=== PATIENT | female | born 1995 | race Caucasian/White ===

== ENCOUNTER 2018-04-24 23:37 | Outpatient (CLI) | payer MEDICAID ==
[2018-04-25 00:16] LABS: APPEARANCE,URINE CLEAR; BILIRUBIN,URINE NEGATIVE (NEGATIVE); COLOR,URINE STRAW; GLUCOSE, URINE NEGATIVE (NEGATIVE); KETONES,URINE NEGATIVE (NEGATIVE); LEUKOCYTE ESTERASE,URINE NEGATIVE (NEGATIVE); NITRITE,URINE NEGATIVE (NEGATIVE); PROTEIN,URINE NEGATIVE (NEGATIVE); URINE SPECIFIC GRAVITY 1.008; UROBILINOGEN,URINE NEGATIVE mg/dL (<2.0)
[2018-04-25 00:28] LABS: URINE AMPHETAMINES SCREEN NEGATIVE; URINE BARBITURATES SCREEN NEGATIVE; URINE BENZODIAZEPINES SCREEN NEGATIVE; URINE COCAINE SCREEN NEGATIVE; URINE MARIJUANA (THC) SCREEN NEGATIVE; URINE METHADONE SCREEN NEGATIVE; URINE PHENCYCLIDINE SCREEN NEGATIVE
--- NOTE | 2018-04-25 00:53 | Non Stress Test Report ---
Non Stress Test Datetime Report Generated by CPN: 04/25/2018 00:52 DEMOGRAPHIC Test Number: 1 EGA NST: 35.0 INDICATION Indication for Study: Ordered by Provider URINE RESULTS Urine Protein, NST: Negative Urine Ketones - NST: Negative Urine Glucose - NST: Negative Urine Blood - NST: Negative MONITORING Monitor Explained: Monitor Explained; Test Explained; Patient Verbalized Understanding Time on Monitor: 04/24/2018 23:58 Time off Monitor: 04/25/2018 04:06 NST Duration: 248 NST INTERVENTIONS NST Interventions: PO Hydration; Reposition Patient Physician Notified NST: Dr. Hopper BABY A: [id number] BABY A Movement : Present Contraction Frequency : x1 FHR Baseline : 135 Accelerations : 15X15 Decelerations : None Variability : Moderate 6-25bpm NST Review: Meets Criteria for Reactive NST NST Review and Verified By : BETTE Cleary NST Results: Reactive NST REPORT Report Trigger: Send Report
== END 2018-04-25 00:57 | disposition home or self-care (01) ==
LOC: LC 23:37
PROVIDERS: ATTEND Obstetrics & Gynecology
PROC: 4A1HXCZ Monitoring of Products of Conception, Cardiac Rate, External Approach (ICD-10-PCS; principal; 2018-04-24)
DX: O47.03 False labor before 37 completed weeks of gestation, third trimester (principal); Z3A.35 35 weeks gestation of pregnancy
CPT/HCPCS: 59025; 80307; 81001

== ENCOUNTER 2018-05-04 14:38 | Inpatient (IN) | payer MEDICAID ==
[2018-05-04 15:07] LABS: APPEARANCE,URINE SLIGHTLY-CLOUDY; BILIRUBIN,URINE NEGATIVE (NEGATIVE); COLOR,URINE YELLOW; GLUCOSE, URINE NEGATIVE (NEGATIVE); KETONES,URINE NEGATIVE (NEGATIVE); LEUKOCYTE ESTERASE,URINE SMALL (NEGATIVE); NITRITE,URINE NEGATIVE (NEGATIVE); PROTEIN,URINE NEGATIVE (NEGATIVE); URINE SPECIFIC GRAVITY 1.008; UROBILINOGEN,URINE NEGATIVE mg/dL (<2.0)
[2018-05-04 15:24] LABS: URINE AMPHETAMINES SCREEN NEGATIVE; URINE BENZODIAZEPINES SCREEN NEGATIVE; URINE COCAINE SCREEN NEGATIVE; URINE MARIJUANA (THC) SCREEN NEGATIVE; URINE METHADONE SCREEN NEGATIVE; URINE PHENCYCLIDINE SCREEN NEGATIVE
[2018-05-04 15:29] LABS: URINE BARBITURATES SCREEN UNCONFIRMED POSITIVE
[2018-05-04 15:33] LABS: UR PRO/CREAT RATIO RESULT 0.5 mg/mg (0.0-0.2); URINE CREATININE 44.4 mg/dL (16-327)
[2018-05-04 15:47] LABS: ABSOLUTE LYMPHOCYTES (AUTO) 1.2 10^3/uL (0.5-4.7); ABSOLUTE MONOCYTES (AUTO) 0.5 10^3/uL (0.1-1.4); ABSOLUTE NEUT (AUTO) 7.5 10^3/uL (1.7-8.2); BASOPHILS % (AUTO) 0.5 % (0-2); EOSINOPHILS % (AUTO) 0.3 % (0-6); HEMATOCRIT 34.1 % (36.0-47.0); HEMOGLOBIN 11.7 g/dL (12.0-15.5); LYMPHOCYTES % (AUTO) 13.2 % (13-45); MEAN CORPUSCULAR HEMOGLOBIN 28.9 pg (27.0-33.4); MEAN CORPUSCULAR HGB CONC 34.2 g/dL (32.0-36.0); MEAN CORPUSCULAR VOLUME 84 fl (80-97); MONOCYTES % (AUTO) 5.3 % (3-13); PLATELET COUNT 104 10^3/uL (150-450); RED BLOOD COUNT 4.03 10^6/uL (3.72-5.28); SEGMENTED NEUTROPHILS % (AUTO) 80.7 % (42-78); TOTAL CELLS COUNTED % (AUTO) 100 %; WHITE BLOOD COUNT 9.2 10^3/uL (4.0-10.5)
[2018-05-04 16:08] LABS: ALANINE AMINOTRANSFERASE 23 U/L (9-52); ALKALINE PHOSPHATASE 190 U/L (38-126); ANION GAP 13 (5-19); ASPARTATE AMINO TRANSFERASE 30 U/L (14-36); BILIRUBIN,DIRECT 0.1 mg/dL (0.0-0.4); BILIRUBIN,TOTAL 0.2 mg/dL (0.2-1.3); BLOOD UREA NITROGEN 10 mg/dL (7-20); CARBON DIOXIDE 20 mmol/L (22-30); CHLORIDE 105 mmol/L (98-107); GLUCOSE 133 mg/dL (75-110); POTASSIUM 4.1 mmol/L (3.6-5.0); TOTAL PROTEIN 5.7 g/dL (6.3-8.2); URIC ACID 6.2 mg/dL (2.5-6.2)
--- NOTE | 2018-05-04 17:12 | Admission Physical ---
Datetime Report Generated by CPN: 05/04/2018 17:12 CURRENT ADMISSION Chief Complaint: Signs/Symptoms Gestational HTN Indication for Induction: Not Applicable Admit Impression : , Intrauterine ; Observation/Evaluation Admit Impression- Other: 36wk 3day iup-abnormal labs Admit Plan: Observation/Evaluation ALLERGIES Medication Allergies: Yes Medication Allergies: Penicillins (05/04/2018); mushroom (05/04/2018) Food Allergies: Mushrooms OBSTETRICAL HISTORY EDC: 05/29/2018 00:00 : 1 Para: 0 Term: 0 : 0 SAB: 0 IAB: 0 Ectopic: 0 Livin Cesareans: 0 VBACs: 0 Multiple Births: 0 Gestational Diabetes: No Rh Sensitization: No Incompetent Cervix: No LUCY: No Infertility: No ART Treatment: No Uterine Anomaly: No IUGR: No Hx Previous C/S: No Macrosomia: No Hx Loss/Stillborn: No PIH: No Hx : No Placenta Previa/Abruption: No Depression/PP Depression: No PTL/PROM: No Post Hemorrhage: No Current Procedures: Ultrasound Obstetrical History Comments: G1-current SEE RECORDS Alcohol: No Marijuana : No Cocaine: No Other Illicit Drugs: No Cigarettes: Never Smoker. [id number] MEDICAL HISTORY Diabetes: No Blood Transfusion: No Pulmonary Disease (Asthma, TB): No Breast Disease: No Hypertension: No Chief Of Staff Doctor Surgery: No Heart Disease: No Hosp/Surgery: Yes Autoimmune Disorder: No Anesthetic Complications: No Kidney Disease: Yes Abnormal Pap Smear: No Neuro/Epilepsy: No Psychiatric Disorders: No Other Medical Diseases: No Hepatitis/Liver Disease: No Significant Family History: No Varicosities/Phlebitis: No Trauma/Violence : No Thyroid Dysfunction: No Medical History Comments: Migraines, wisdom teeth removal INFECTIOUS HISTORY Gonorrhea: No Genital Herpes: No Chlamydia: No Tuberculosis: No Syphilis: No Hepatitis: No HIV/AIDS Exposure: No Rash or Viral Illness: No HPV: No PHYSICAL EXAM General: Normal HEENT: Normal Neurologic: Normal Thyroid: Deferred Heart: Normal Lungs: Normal Breast: Deferred Back: Normal Abdomen: Normal Genitourinary Exam: Deferred Extremities: Normal DTRs: Normal Pelvic Type: Not Done Vital Signs: Reviewed; Within Normal Limits Details Vital Signs: Elevated b/p at [facility] FETUS A EGA: 36.3 Monitoring: External US FHR- Baseline: 150 Variability: Moderate 6-25bpm Accelerations: 15X15 FHR Category: Category I Presentation: Vertex Admit Comment: G1 Sent for PE workup from [facility] after b/p 143/91 Urine-protein creatinine ratio 0.5 Platelets 104,000; were 180,000 early Uric acid 6.2, LDH 198 History migraines B/ps normal on L_D. Plan to admit for 24 hr observation, repeat labs in am, collect 24 hr urine for protein. PLANS FOR LABOR AND DELIVERY Pain Management: Natural Feeding Preference: Formula Benefit of Breast Feed Discussed: Yes Circumcision: N/A INFORMED CONSENT Assignment: Jaleel Claros MD Signature: with User ID: Shirley : with User ID: Shirley : I personally evaluated and examined the patient in conjunction with the MLP and agree with the assessment, treatment plan and disposition.
--- NOTE | 2018-05-04 17:35 | Non Stress Test Report ---
Non Stress Test Datetime Report Generated by CPN: 05/04/2018 17:35 DEMOGRAPHIC EGA NST: 36.3 INDICATION Indication for Study: Ordered by Provider MONITORING Monitor Explained: Monitor Explained; Test Explained; Patient Verbalized Understanding Time on Monitor: 05/04/2018 14:51 Time off Monitor: 05/04/2018 17:34 NST Duration: 163 NST INTERVENTIONS NST Interventions: PO Hydration Physician Notified NST: P.Brothers, CNM BABY A: [id number] BABY A Movement : Present Contraction Frequency : irregular FHR Baseline : 135 Accelerations : 15X15 Decelerations : None Variability : Moderate 6-25bpm NST Review: Meets Criteria for Reactive NST NST Review and Verified By : Deana Morley RNC NST Results: Reactive NST REPORT Report Trigger: Send Report
[2018-05-05 06:28] LABS: ABSOLUTE BASOPHILS # (AUTO) 0.1 10^3/uL (0.0-0.2); ABSOLUTE EOSINOPHILS # (AUTO) 0.1 10^3/uL (0.0-0.6); ABSOLUTE LYMPHOCYTES (AUTO) 1.9 10^3/uL (0.5-4.7); ABSOLUTE MONOCYTES (AUTO) 0.5 10^3/uL (0.1-1.4); ABSOLUTE NEUT (AUTO) 5.6 10^3/uL (1.7-8.2); BASOPHILS % (AUTO) 0.7 % (0-2); EOSINOPHILS % (AUTO) 0.7 % (0-6); HEMATOCRIT 34.1 % (36.0-47.0); HEMOGLOBIN 12.1 g/dL (12.0-15.5); MEAN CORPUSCULAR HEMOGLOBIN 29.8 pg (27.0-33.4); MEAN CORPUSCULAR HGB CONC 35.5 g/dL (32.0-36.0); MEAN CORPUSCULAR VOLUME 84 fl (80-97); MONOCYTES % (AUTO) 6.5 % (3-13); RED BLOOD COUNT 4.07 10^6/uL (3.72-5.28); RED CELL DISTRIBUTION WIDTH 14.1 % (11.5-14.0); SEGMENTED NEUTROPHILS % (AUTO) 69.1 % (42-78); TOTAL CELLS COUNTED % (AUTO) 100 %; WHITE BLOOD COUNT 8.1 10^3/uL (4.0-10.5)
[2018-05-05 06:56] LABS: PLATELET COUNT 99 10^3/uL (150-450)
[2018-05-05 07:16] LABS: ALANINE AMINOTRANSFERASE 22 U/L (9-52); ALBUMIN 2.9 g/dL (3.5-5.0); ALKALINE PHOSPHATASE 189 U/L (38-126); ANION GAP 11 (5-19); ASPARTATE AMINO TRANSFERASE 30 U/L (14-36); BILIRUBIN,TOTAL 0.2 mg/dL (0.2-1.3); BLOOD UREA NITROGEN 11 mg/dL (7-20); CALCIUM 8.8 mg/dL (8.4-10.2); CARBON DIOXIDE 22 mmol/L (22-30); CHLORIDE 106 mmol/L (98-107); GLUCOSE 67 mg/dL (75-110); POTASSIUM 4.2 mmol/L (3.6-5.0); SODIUM 138.7 mmol/L (137-145); TOTAL PROTEIN 5.5 g/dL (6.3-8.2); URIC ACID 6.7 mg/dL (2.5-6.2)
[2018-05-05 17:00] LABS: ABSOLUTE EOSINOPHILS # (AUTO) 0.1 10^3/uL (0.0-0.6); ABSOLUTE LYMPHOCYTES (AUTO) 1.8 10^3/uL (0.5-4.7); ABSOLUTE MONOCYTES (AUTO) 0.6 10^3/uL (0.1-1.4); ABSOLUTE NEUT (AUTO) 5.5 10^3/uL (1.7-8.2); BASOPHILS % (AUTO) 0.6 % (0-2); EOSINOPHILS % (AUTO) 0.6 % (0-6); HEMATOCRIT 34.8 % (36.0-47.0); MEAN CORPUSCULAR HEMOGLOBIN 28.9 pg (27.0-33.4); MEAN CORPUSCULAR HGB CONC 34.4 g/dL (32.0-36.0); MEAN CORPUSCULAR VOLUME 84 fl (80-97); MONOCYTES % (AUTO) 7.9 % (3-13); PLATELET COUNT 115 10^3/uL (150-450); RED BLOOD COUNT 4.14 10^6/uL (3.72-5.28); RED CELL DISTRIBUTION WIDTH 13.9 % (11.5-14.0); SEGMENTED NEUTROPHILS % (AUTO) 68.9 % (42-78); TOTAL CELLS COUNTED % (AUTO) 100 %
[2018-05-05 17:28] LABS: ALANINE AMINOTRANSFERASE 15 U/L (9-52); ALKALINE PHOSPHATASE 191 U/L (38-126); ANION GAP 11 (5-19); ASPARTATE AMINO TRANSFERASE 28 U/L (14-36); BILIRUBIN,DIRECT 0.2 mg/dL (0.0-0.4); BILIRUBIN,TOTAL 0.2 mg/dL (0.2-1.3); BLOOD UREA NITROGEN 11 mg/dL (7-20); CALCIUM 8.5 mg/dL (8.4-10.2); CARBON DIOXIDE 22 mmol/L (22-30); CHLORIDE 105 mmol/L (98-107); GLUCOSE 121 mg/dL (75-110); POTASSIUM 4.1 mmol/L (3.6-5.0); TOTAL PROTEIN 5.6 g/dL (6.3-8.2); URIC ACID 6.4 mg/dL (2.5-6.2)
[2018-05-05 17:51] LABS: 24 HOUR URINE PROTEIN RESULT 295 mg/day (42-225); 24 HR URINE CREAT RESULT 0.3 mg/day (0.8-2.0); URINE CREATININE 22.7 mg/dL (16-327); URINE PROTEIN 22.7 mg/dL (<12)
--- NOTE | 2018-05-06 00:06 | PDOC PROGRESS REPORT ---
Subjective Progress Note for:: 05/05/18 Subjective:: late entry note for 05/05/2018 at 2100 - denies [facility]/blurry vision/RUQ pain. reports BPs always elevated in the office. Reason For Visit: THROMBOCYTOPENIA, 36 WKS, PRE E Physical Exam - Physical Exam Vital Signs: Temp Pulse Resp BP Pulse Ox 97.7 F 97 18 121/78 100 05/05/18 20:05 05/05/18 20:05 05/05/18 20:05 05/05/18 20:05 05/05/18 20:05 Intake & Output 05/04/18 05/05/18 05/06/18 06:59 06:59 06:59 Intake Total 200 Output Total 1000 Balance -800 Weight 69.2 kg General appearance: PRESENT: no acute distress, well-developed, well-nourished Head exam: PRESENT: atraumatic, normocephalic Respiratory exam: PRESENT: clear to auscultation jordan, symmetrical, unlabored Cardiovascular exam: PRESENT: RRR. ABSENT: diastolic murmur, rubs, systolic murmur Vascular exam: PRESENT: normal capillary refill GI/Abdominal exam: PRESENT: normal bowel sounds, soft, other - gravid uterus. ABSENT: distended, guarding, mass, organolmegaly, rebound, tenderness Rectal exam: PRESENT: deferred Extremities exam: PRESENT: full ROM. ABSENT: calf tenderness, clubbing, pedal edema Musculoskeletal exam: PRESENT: ambulatory Neurological exam: PRESENT: alert, awake, oriented to person, oriented to place , oriented to time, oriented to situation, CN II-XII grossly intact. ABSENT: motor sensory deficit Psychiatric exam: PRESENT: appropriate affect, normal mood. ABSENT: homicidal ideation, suicidal ideation Skin exam: PRESENT: dry, intact, warm. ABSENT: cyanosis, rash Result Laboratory Results: 05/05/18 16:50 05/05/18 16:45 05/05/18 05/05/18 05/05/18 06:14 06:14 16:38 WBC 8.1 RBC 4.07 Hgb 12.1 Hct 34.1 L MCV 84 MCH 29.8 MCHC 35.5 RDW 14.1 H Plt Count 99 L Seg Neutrophils % 69.1 Lymphocytes % 23.0 Monocytes % 6.5 Eosinophils % 0.7 Basophils % 0.7 Absolute Neutrophils 5.6 Absolute Lymphocytes 1.9 Absolute Monocytes 0.5 Absolute Eosinophils 0.1 Absolute Basophils 0.1 Sodium 138.7 Potassium 4.2 Chloride 106 Carbon Dioxide 22 Anion Gap 11 BUN 11 Creatinine 0.79 Est GFR ( Amer) > 60 Est GFR (Non-Af Amer) > 60 Glucose 67 L Uric Acid 6.7 H Calcium 8.8 Total Bilirubin 0.2 AST 30 ALT 22 Alkaline Phosphatase 189 H Total Protein 5.5 L Albumin 2.9 L Ur 24 Hour Volume 1300 Ur Total Protein 24 Hr 295 H 05/05/18 05/05/18 16:45 16:50 WBC 8.0 RBC 4.14 Hgb 12.0 Hct 34.8 L MCV 84 MCH 28.9 MCHC 34.4 RDW 13.9 Plt Count 115 L Seg Neutrophils % 68.9 Lymphocytes % 22.0 Monocytes % 7.9 Eosinophils % 0.6 Basophils % 0.6 Absolute Neutrophils 5.5 Absolute Lymphocytes 1.8 Absolute Monocytes 0.6 Absolute Eosinophils 0.1 Absolute Basophils 0.0 Sodium 138.0 Potassium 4.1 Chloride 105 Carbon Dioxide 22 Anion Gap 11 BUN 11 Creatinine 0.73 Est GFR ( Amer) > 60 Est GFR (Non-Af Amer) > 60 Glucose 121 H Uric Acid 6.4 H Calcium 8.5 Total Bilirubin 0.2 AST 28 ALT 15 Alkaline Phosphatase 191 H Total Protein 5.6 L Albumin 3.0 L Ur 24 Hour Volume Ur Total Protein 24 Hr Assessment & Plan - Diagnosis (1) Hypertension affecting Qualifiers: Trimester: third trimester Qualified Code(s): O16.3 - Unspecified maternal hypertension, third trimester Is this a current diagnosis for this admission?: Yes Plan: BPs normal right now but elevated in office. 24 hr UTP 295mg. Pt is now 36+ 5ega and reviewed with patient that with lab trend and that concern for developing PreE (threshold is 300mg). Concern that Uric acid is elevated and Platlets low but essentially stable. Recommend repeat labs in am and then again on Tuesday. Plan unless need to deliver sooner that IOL on Tuesday for delivery on tuesday when 37wks. Plan for IV steroids on Tuesday to help with platlets in order to attempt to allow patient to have epidural. If labs improve may be able to delay delivery past 37wks. (2) Thrombocytopenia affecting Is this a current diagnosis for this admission?: Yes Plan: see above - Time Time Spent with patient: 25-34 minutes Smoking Cessation Education: 3 to 10 minutes Medications reviewed and adjusted accordingly: Yes Anticipated discharge: Home Within: within 48 hours - Inpatient Certification Based on my medical assessment, after consideration of the patient's comorbidities, presenting symptoms, or acuity I expect that the services needed warrant INPATIENT care.: Yes I certify that my determination is in accordance with my understanding of Medicare's requirements for reasonable and necessary INPATIENT services [42 CFR 412.3e].: Yes Medical Necessity: Need Close Monitoring Due to Risk of Patient Decompensation
[2018-05-06 09:39] LABS: ABSOLUTE BASOPHILS # (AUTO) 0.1 10^3/uL (0.0-0.2); ABSOLUTE EOSINOPHILS # (AUTO) 0.1 10^3/uL (0.0-0.6); ABSOLUTE MONOCYTES (AUTO) 0.6 10^3/uL (0.1-1.4); ABSOLUTE NEUT (AUTO) 6.4 10^3/uL (1.7-8.2); BASOPHILS % (AUTO) 0.6 % (0-2); EOSINOPHILS % (AUTO) 0.7 % (0-6); HEMATOCRIT 36.2 % (36.0-47.0); HEMOGLOBIN 12.3 g/dL (12.0-15.5); MEAN CORPUSCULAR HEMOGLOBIN 28.7 pg (27.0-33.4); MEAN CORPUSCULAR HGB CONC 33.8 g/dL (32.0-36.0); MEAN CORPUSCULAR VOLUME 85 fl (80-97); PLATELET COUNT 114 10^3/uL (150-450); RED BLOOD COUNT 4.27 10^6/uL (3.72-5.28); RED CELL DISTRIBUTION WIDTH 14.1 % (11.5-14.0); SEGMENTED NEUTROPHILS % (AUTO) 69.7 % (42-78); TOTAL CELLS COUNTED % (AUTO) 100 %; WHITE BLOOD COUNT 9.2 10^3/uL (4.0-10.5)
[2018-05-06 09:57] LABS: ALANINE AMINOTRANSFERASE 17 U/L (9-52); ALKALINE PHOSPHATASE 198 U/L (38-126); ANION GAP 12 (5-19); ASPARTATE AMINO TRANSFERASE 30 U/L (14-36); BILIRUBIN,DIRECT 0.2 mg/dL (0.0-0.4); BILIRUBIN,TOTAL 0.2 mg/dL (0.2-1.3); BLOOD UREA NITROGEN 13 mg/dL (7-20); CALCIUM 8.4 mg/dL (8.4-10.2); CARBON DIOXIDE 24 mmol/L (22-30); CHLORIDE 104 mmol/L (98-107); GLUCOSE 77 mg/dL (75-110); POTASSIUM 4.2 mmol/L (3.6-5.0); SODIUM 139.7 mmol/L (137-145); TOTAL PROTEIN 5.7 g/dL (6.3-8.2); URIC ACID 6.7 mg/dL (2.5-6.2)
--- NOTE | 2018-05-06 14:20 | PDOC PROGRESS REPORT ---
Subjective Progress Note for:: 05/06/18 Subjective:: No complaints. Feels baby move. Reason For Visit: THROMBOCYTOPENIA, 36 WKS, PRE E Physical Exam - Physical Exam Vital Signs: Temp Pulse Resp BP Pulse Ox 98 F 76 18 117/65 98 05/06/18 12:29 05/06/18 12:29 05/06/18 12:29 05/06/18 12:29 05/06/18 12:29 Intake & Output 05/05/18 05/06/18 05/07/18 06:59 06:59 06:59 Intake Total 200 Output Total 1000 Balance -800 Weight 69.2 kg GI/Abdominal exam: PRESENT: soft - Gravid, nontender Extremities exam: PRESENT: full ROM - Nontender, pulses equal, no evidence Result Laboratory Results: 05/06/18 09:30 05/06/18 09:30 05/05/18 05/05/18 05/05/18 16:38 16:45 16:50 WBC 8.0 RBC 4.14 Hgb 12.0 Hct 34.8 L MCV 84 MCH 28.9 MCHC 34.4 RDW 13.9 Plt Count 115 L Seg Neutrophils % 68.9 Lymphocytes % 22.0 Monocytes % 7.9 Eosinophils % 0.6 Basophils % 0.6 Absolute Neutrophils 5.5 Absolute Lymphocytes 1.8 Absolute Monocytes 0.6 Absolute Eosinophils 0.1 Absolute Basophils 0.0 Sodium 138.0 Potassium 4.1 Chloride 105 Carbon Dioxide 22 Anion Gap 11 BUN 11 Creatinine 0.73 Est GFR ( Amer) > 60 Est GFR (Non-Af Amer) > 60 Glucose 121 H Uric Acid 6.4 H Calcium 8.5 Total Bilirubin 0.2 AST 28 ALT 15 Alkaline Phosphatase 191 H Total Protein 5.6 L Albumin 3.0 L Ur 24 Hour Volume 1300 Ur Total Protein 24 Hr 295 H 05/06/18 05/06/18 09:30 09:30 WBC 9.2 RBC 4.27 Hgb 12.3 Hct 36.2 MCV 85 MCH 28.7 MCHC 33.8 RDW 14.1 H Plt Count 114 L Seg Neutrophils % 69.7 Lymphocytes % 22.0 Monocytes % 7.0 Eosinophils % 0.7 Basophils % 0.6 Absolute Neutrophils 6.4 Absolute Lymphocytes 2.0 Absolute Monocytes 0.6 Absolute Eosinophils 0.1 Absolute Basophils 0.1 Sodium 139.7 Potassium 4.2 Chloride 104 Carbon Dioxide 24 Anion Gap 12 BUN 13 Creatinine 0.82 Est GFR ( Amer) > 60 Est GFR (Non-Af Amer) > 60 Glucose 77 Uric Acid 6.7 H Calcium 8.4 Total Bilirubin 0.2 AST 30 ALT 17 Alkaline Phosphatase 198 H Total Protein 5.7 L Albumin 3.0 L Ur 24 Hour Volume Ur Total Protein 24 Hr Assessment & Plan - Diagnosis (1) Hypertension affecting Qualifiers: Trimester: third trimester Qualified Code(s): O16.3 - Unspecified maternal hypertension, third trimester Is this a current diagnosis for this admission?: Yes (2) Thrombocytopenia affecting Is this a current diagnosis for this admission?: Yes - Plan Summary Plan Summary: Hypertension - Will will continue to monitor Thrombocytopenia - Platelets above 100,000, will hold steroids at this time Cervical ripening tomorrow pm with induction
[2018-05-07] MEDS ORDERED: ACETAMINOPHEN 325 MG TABLET ONE (07:34)
[2018-05-07] MEDS ORDERED: BUTALB/ACETAMINOPHEN/CAFFEINE 1 TAB EACH PO ONE (10:00)
[2018-05-07] MEDS ORDERED: RINGERS SOLUTION,LACTATED 1,000 ML IV ONE (13:11)
[2018-05-07] MEDS ORDERED: RINGERS SOLUTION,LACTATED 1,000 ML IV PRN (13:11)
--- NOTE | 2018-05-07 13:11 | PDOC PROGRESS REPORT ---
Subjective Progress Note for:: 05/07/18 Subjective:: denies blurry vision/RUQ pain. reports BPs always elevated in the office. Now with HOOK not relieved with tylenol, fioricet given. Reason For Visit: THROMBOCYTOPENIA, 36 WKS, PRE E Physical Exam - Physical Exam Vital Signs: Temp Pulse Resp BP Pulse Ox 97.9 F 91 18 113/82 98 05/07/18 12:04 05/07/18 12:04 05/07/18 12:04 05/07/18 12:04 05/07/18 12:04 Intake & Output 05/06/18 05/07/18 05/08/18 06:59 06:59 06:59 Intake Total 600 Balance 600 General appearance: PRESENT: no acute distress, well-developed, well-nourished Head exam: PRESENT: atraumatic, normocephalic Respiratory exam: PRESENT: clear to auscultation jordan, symmetrical, unlabored Cardiovascular exam: PRESENT: RRR. ABSENT: diastolic murmur, rubs, systolic murmur Pulses: PRESENT: normal dorsalis pedis pul, +2 pedal pulses bilateral Vascular exam: PRESENT: normal capillary refill GI/Abdominal exam: PRESENT: normal bowel sounds, soft, other - gravid. ABSENT: distended, guarding, mass, organolmegaly, rebound, tenderness Rectal exam: PRESENT: deferred Extremities exam: PRESENT: full ROM. ABSENT: calf tenderness, clubbing, pedal edema Neurological exam: PRESENT: alert, awake, oriented to person, oriented to place , oriented to time, oriented to situation, CN II-XII grossly intact. ABSENT: motor sensory deficit Psychiatric exam: PRESENT: appropriate affect, normal mood. ABSENT: homicidal ideation, suicidal ideation Skin exam: PRESENT: dry, intact, warm. ABSENT: cyanosis, rash - Obstetrical Exam External Genitalia: normal Dilation (cm): 1 Effacement (%): 50 Station: -3 Tender: No Result Laboratory Results: 05/06/18 09:30 05/06/18 09:30 Assessment & Plan - Diagnosis (1) Hypertension affecting Qualifiers: Trimester: third trimester Qualified Code(s): O16.3 - Unspecified maternal hypertension, third trimester Is this a current diagnosis for this admission?: Yes Plan: BPs normal right now but elevated in office 140/90s in office 24 hr UTP 295mgon 05/05. Pt is now 36+6ega and reviewed with patient that with lab trend and that concern for developing PreE (threshold is 300mg). Concern that Uric acid is elevated and Platlets low but essentially stable will give Steroids IV to help improve chances of obtaining epidural during labor. Recommend repeat labs today and at least q 8 while in labor. Now symptomatic and HOOK unrelieved with rest and tylenol. Will bring patient over to labor and delivery and begin IOL with cervidil then cooks catheter and pitocin. If labs improve may be able to delay delivery past 37wks. (2) Thrombocytopenia affecting Is this a current diagnosis for this admission?: Yes Plan: see above (3) Headache Qualifiers: Headache chronicity pattern: acute headache Is this a current diagnosis for this admission?: Yes Plan: not relieved with medication. - Time Time Spent with patient: 15-24 minutes Medications reviewed and adjusted accordingly: Yes Within: within 36 hours - Inpatient Certification Based on my medical assessment, after consideration of the patient's comorbidities, presenting symptoms, or acuity I expect that the services needed warrant INPATIENT care.: Yes I certify that my determination is in accordance with my understanding of Medicare's requirements for reasonable and necessary INPATIENT services [42 CFR 412.3e].: Yes Medical Necessity: Need Close Monitoring Due to Risk of Patient Decompensation, Other - need for delivery Post Hospital Care: D/C Director Smb Sales Documentation
[2018-05-07] MEDS ORDERED: VANCOMYCIN HCL 1,000 MG in DEXTROSE 5%-WATER 250 ML IV SCH (14:00)
[2018-05-07] MEDS ORDERED: SUCCINYLCHOLINE CHLORIDE INJ 200 MG/10 ML VIAL ONE (14:14)
[2018-05-07 14:29] LABS: ABSOLUTE BASOPHILS # (AUTO) 0.1 10^3/uL (0.0-0.2); ABSOLUTE EOSINOPHILS # (AUTO) 0.1 10^3/uL (0.0-0.6); ABSOLUTE LYMPHOCYTES (AUTO) 1.9 10^3/uL (0.5-4.7); ABSOLUTE MONOCYTES (AUTO) 0.6 10^3/uL (0.1-1.4); ABSOLUTE NEUT (AUTO) 6.6 10^3/uL (1.7-8.2); BASOPHILS % (AUTO) 0.6 % (0-2); EOSINOPHILS % (AUTO) 0.7 % (0-6); HEMOGLOBIN 13.5 g/dL (12.0-15.5); MEAN CORPUSCULAR HEMOGLOBIN 28.6 pg (27.0-33.4); MEAN CORPUSCULAR HGB CONC 33.8 g/dL (32.0-36.0); MEAN CORPUSCULAR VOLUME 85 fl (80-97); MONOCYTES % (AUTO) 6.5 % (3-13); PLATELET COUNT 130 10^3/uL (150-450); RED BLOOD COUNT 4.73 10^6/uL (3.72-5.28); SEGMENTED NEUTROPHILS % (AUTO) 71.2 % (42-78); TOTAL CELLS COUNTED % (AUTO) 100 %; WHITE BLOOD COUNT 9.3 10^3/uL (4.0-10.5)
[2018-05-07 14:47] LABS: ALANINE AMINOTRANSFERASE 22 U/L (9-52); ALBUMIN 3.7 g/dL (3.5-5.0); ALKALINE PHOSPHATASE 237 U/L (38-126); ANION GAP 12 (5-19); ASPARTATE AMINO TRANSFERASE 36 U/L (14-36); BILIRUBIN,DIRECT 0.2 mg/dL (0.0-0.4); BILIRUBIN,TOTAL 0.3 mg/dL (0.2-1.3); BLOOD UREA NITROGEN 11 mg/dL (7-20); CALCIUM 9.2 mg/dL (8.4-10.2); CARBON DIOXIDE 24 mmol/L (22-30); CHLORIDE 103 mmol/L (98-107); GLUCOSE 78 mg/dL (75-110); POTASSIUM 4.3 mmol/L (3.6-5.0); SODIUM 138.5 mmol/L (137-145); TOTAL PROTEIN 6.8 g/dL (6.3-8.2); URIC ACID 6.7 mg/dL (2.5-6.2)
[2018-05-07] MEDS ORDERED: DINOPROSTONE 10 MG VAGINAL INSERT.SR ONE (15:03)
[2018-05-07] MEDS ORDERED: DINOPROSTONE 10 MG VAGINAL INSERT.SR PV PRN (15:35)
[2018-05-07] MEDS ORDERED: OXYTOCIN/NORMAL SALINE 20 UNIT/1,000 ML RTUINJ IV PRN ×2 (16:25→18:25)
[2018-05-07] MEDS ORDERED: OXYTOCIN/NORMAL SALINE 0 UNIT/0 ML RTUINJ ONE (16:38)
[2018-05-07] MEDS ORDERED: TERBUTALINE SULFATE INJ/PF 1 MG/1 ML SDV ONE (17:04)
[2018-05-07] MEDS ORDERED: CITRIC ACID/SODIUM CITRATE ORAL SOLN 15 ML UDCUP ONE (17:05)
[2018-05-07] MEDS ORDERED: CEFAZOLIN 2 GM/D5W RTU 2 GM/50 ML RTUPB IV ONE (17:05)
[2018-05-07] MEDS ORDERED: FENTANYL CITRATE INJ/PF 100 MCG/2 ML AMPUL ONE (17:25)
[2018-05-07] MEDS ORDERED: MORPHINE SULFATE 10 MG/ML INJ ONE ×2 (17:26→20:20)
[2018-05-07] MEDS ORDERED: MISOPROSTOL 0.2 MG TABLET ONE (17:31)
[2018-05-07] MEDS ORDERED: FENTANYL CITRATE INJ/PF 100 MCG/2 ML AMPUL IV PRN ×3 (17:43)
[2018-05-07] MEDS ORDERED: MORPHINE SULFATE 10 MG/ML INJ IV PRN (17:43)
[2018-05-07] MEDS ORDERED: PROMETHAZINE HCL INJ 25 MG/1 ML VIAL IV PRN ×2 (17:43→18:25)
[2018-05-07] MEDS ORDERED: DIPHENHYDRAMINE HCL 50 MG/ML VIAL IV PRN (17:43)
[2018-05-07] MEDS ORDERED: MEPERIDINE HCL/PF INJ 25 MG/1 ML DISP.SYRIN IV PRN (17:43)
[2018-05-07] MEDS ORDERED: ACETAMINOPHEN 1,000 MG/100 ML RTUPB IV ONE (18:03)
[2018-05-07] MEDS ORDERED: ACETAMINOPHEN 325 MG TABLET PO PRN (18:25)
[2018-05-07] MEDS ORDERED: OXYCODONE-ACETAMINOPHEN 5-325 MG TABLET PO PRN (18:25)
[2018-05-07] MEDS ORDERED: DIPH/PERTUSS(ACELL)/TETANUS VAC/PF 0.5 ML SYR (>=10YO) IM PRN (18:25)
[2018-05-07] MEDS ORDERED: SIMETHICONE 80 MG TAB.CHEW PO PRN (18:25)
[2018-05-07] MEDS ORDERED: MEASLES,MUMPS&RUBELLA VACC/PF 0.5 ML VIAL SUBCUT PRN (18:25)
[2018-05-07] MEDS ORDERED: ACETAMINOPHEN 1,000 MG/100 ML RTUPB IV PRN (18:25)
[2018-05-07] MEDS ORDERED: PROPOFOL INJ 200 MG/20 ML VIAL IV ONE (18:34)
[2018-05-07] MEDS ORDERED: OXYTOCIN 10 UNIT/ML VIAL ONE (18:35)
--- NOTE | 2018-05-07 18:40 | Brief Operative Note ---
BRIEF OPERATIVE REPORT DATE OF SURGERY: 05/07/18 TIME OF SURGERY: 18:00 PREOPERATIVE DIAGNOSIS: , 36+6, PreE, Non reassuring Monitoring, Thrombocytopenia POSTOPERATIVE DIAGNOSIS: CLARICE - abruption SURGEON: SAADIA JEROME FINDINGS: normal tubes/ovaries, normal uterus, placenta noted to be at delivery the infant and poor integrity noted of the placenta with placenta fracturing consistent with abruption, VFI delivery at 1722 on 05/07/2018, Apgars 7/8, weight 2490g (5#8oz), IVF 700ml, UOP 150ml COMPLICATIONS: none ESTIMATED BLOOD LOSS: 600ml TISSUE REMOVED OR ALTERED: placenta and cord sent to pathology TECHNICAL PROCEDURE: Primary section
--- NOTE | 2018-05-07 18:56 | RADIOLOGY REPORT (SQ) ---
EXAM DESCRIPTION: KUB/ABDOMEN (SINGLE VIEW) COMPLETED DATE/TIME: 05/07/2018 6:15 pm REASON FOR STUDY: STAT C/S without count COMPARISON: None. FINDINGS: Single-view abdomen, 2 films obtained for surgical count after stat surgery. No radiopaque foreign bodies within the abdomen or pelvis allowing for a Coello catheter and external artifact. Nonobstructive bowel gas pattern. IMPRESSION: No retained foreign bodies suggested. TECHNICAL DOCUMENTATION: JOB ID: [id number] Reading location - IP/workstation name: [email or web address]
[2018-05-07] MEDS ORDERED: HYDROMORPHONE HCL INJ/PF 2 MG/ML AMPULE ONE ×2 (18:59→21:50)
[2018-05-07] MEDS ORDERED: MEPERIDINE HCL/PF INJ 25 MG/1 ML DISP.SYRIN ONE (18:59)
[2018-05-07] MEDS: HYDROMORPHONE HCL INJ/PF 2 MG/ML AMPULE IV PRN ×2 (19:05→23:01)
[2018-05-07] MEDS ORDERED: MAGNESIUM SULFATE 4 GM/100 ML RTUPB IV ONE ×2 (19:20→19:23)
[2018-05-07] MEDS ORDERED: MAGNESIUM SULFATE 20 GM/500 ML RTUINJ IV ONE (19:20)
--- NOTE | 2018-05-07 19:23 | Operative Report ---
Operative Report DATE OF SURGERY: 05/07/18 PREOPERATIVE DIAGNOSIS: , 36+6, PreE, Non reassuring Monitoring, Thrombocytopenia POSTOPERATIVE DIAGNOSIS: CLARICE - abruption OPERATION: Primary section SURGEON: SAADIA JEROME ANESTHESIA: GA TISSUE REMOVED OR ALTERED: placenta and cord sent to pathology COMPLICATIONS: None ESTIMATED BLOOD LOSS: 600ml INTRAOPERATIVE FINDINGS: normal tubes/ovaries, normal uterus, placenta noted to be at delivery the and poor integrity noted of the placenta with placenta fracturing consistent with abruption, VFI delivery at 1722 on 04/2018, Apgars 7/8, weight 2490g (5#8oz), IVF 700ml, UOP 150ml PROCEDURE: Anesthesia provider: [Loren Mobley MD, Areli Tang CRNA] Urine output: [150ml] IV fluids: [700ml] Indications: [22yo at 36+6ega brought over from the floor for IOL due to PreE. 24 hr UTP 295mg on 05/05/2018. Normal BPs on the floor and reactive NST q shift since admission. However, mild range BPs in the office and elevated Cr for with elevated Uric acid but normal AST/ALT. Platlets fluctuate between 99 and 130K. This afternoon patient began having a headache and tylenol initially given but no response and moderate response to fioricet. Upon arrival to labor and delivery cervix was 3cm and pitocin was ordered. However, FHR began to have late decelerations and patient began having repetitive contractions and then FHR noted to have terminal bradycadia to 80s-90 's with no response to intrauterine resucitation or terbutaline. Cervix re- evaluated and now cervix 6cm. Reviewed NRFHTs and concern for abruption remote from delivery with patient and her family member. The risks, benefits, alternatives reviewed and patient and family agreed to proceed with Primary section. ] Procedure: The patient was taken to the operating room where spinal anesthesia was obtained and found to be adequate. She was then prepped and draped in the normal sterile fashion and placed in the dorsal supine position with a leftward tilt. A Pfannenstiel skin incision was then made and carried through to the underlying layers of the fascia with the scalpel. The fascia was incised in the midline and the incision extended laterally with the Perez scissors. The superior aspect of the fascial incision was then grasped with Elaina clamps elevated and the underlying rectus muscles dissected off [bluntly]. Attention was then turned to the inferior aspect of the fascial incision which in a similar fashion was grasped, tented up with Elaina clamps, and the rectus muscles dissected off [bluntly]. The rectus muscles were then in the midline and the peritoneum at the amount identified and entered [bluntly]. The peritoneal incision was then extended superiorly and inferiorly with good visualization of the bladder. The bladder blade was inserted and the vesicouterine peritoneum identified grasped with Cypriot pickups and entered sharply with the Metzenbaum scissors. This incision was then extended laterally with the Metzenbaum scissors and a bladder flap created digitally. The bladder blade was then reinserted and the lower uterine segment incised in a transverse fashion with the scalpel. The uterine incision was then extended bluntly. The bladder blade was removed and the infant's head was delivered from cephalic presentation atraumatically. The nose and mouth were suctioned and the cord doubly clamped and cut. And the infant was handed off to waiting pediatricians. The placenta was then delivered spontaneously and the uterus exteriorized and cleared of all clots and debris. The uterine incision was then repaired with 1- 0 Vicryl in a running locked fashion. A second layer of the same suture was used to obtain hemostasis via imbrication of the initial layer. The bladder flap was then repaired with 3-0 chromic in a running fashion. The uterus was returned to the patient's abdomen and Interceed was placed overlying the uterine incision to prevent adhesions. The gutters were cleared of all clots and debris. All operative sites were noted to be hemostatic after surgicel placed. The fascia was reapproximated with 0 Vicryl in a running fashion from each lateral edge to the midline. The skin was closed with 3-0 Monocryl in a running subcuticular fashion with overlying Dermabond for additional dressing as well as wound closure. The patient tolerated the procedure well. Sponge lap needle and instrument counts are correct times 2. 2 g of Ancef were given prior to skin incision. The patient was taken to the recovery area awake and in stable condition.
[2018-05-07] MEDS ORDERED: MAGNESIUM SULFATE 20 GM/500 ML RTUINJ IV PRN (19:24)
[2018-05-07] MEDS ORDERED: PROMETHAZINE HCL INJ 25 MG/1 ML VIAL ONE (19:50)
[2018-05-08] MEDS ORDERED: HYDROMORPHONE HCL INJ/PF 2 MG/ML AMPULE ONE (03:03)
[2018-05-08] MEDS: HYDROMORPHONE HCL INJ/PF 2 MG/ML AMPULE IV PRN (03:06)
[2018-05-08 06:14] LABS: HEMATOCRIT 33.9 % (36.0-47.0); MEAN CORPUSCULAR HEMOGLOBIN 28.2 pg (27.0-33.4); MEAN CORPUSCULAR HGB CONC 33.3 g/dL (32.0-36.0); MEAN CORPUSCULAR VOLUME 85 fl (80-97); RED CELL DISTRIBUTION WIDTH 14.2 % (11.5-14.0)
[2018-05-08 06:46] LABS: HEMOGLOBIN 11.3 g/dL (12.0-15.5)
[2018-05-08 06:50] LABS: PLATELET COUNT 97 10^3/uL (150-450)
[2018-05-08] MEDS ORDERED: OXYCODONE-ACETAMINOPHEN 5-325 MG TABLET ONE (07:03)
[2018-05-08] MEDS: OXYCODONE-ACETAMINOPHEN 5-325 MG TABLET PO PRN ×3 (07:06→21:54)
--- NOTE | 2018-05-08 07:49 | L&D Progress Notes ---
PROGRESS NOTES Datetime Report Generated by CPN: 05/08/2018 07:49 PROGRESS NOTE Impression: Eclampsia - Mild Informed Consent Obtained: Risks, Benefits and Alternatives Discussed Comment: BPs severe range on labor and delivery just before abruption. Patient continued to have severe range BPs after urgent section. Pt now with normal to mild range BPs overnight and has diureses over 3 liters. Will discontinue magnesium for now and then if stable over the next 2 hours then will transfer to the floor. will watch BPs and start procardia if needed. FETUS A : 36.0 Presentation: Vertex SIGNATURE SIGNATURE: [id number];[id number];[id number] SIGNATURE: [id number];[id number] SIGNATURE: [id number];[id number] SIGNATURE: [id number] Signature: with User ID: [email or web address] : I personally evaluated and examined the patient in conjunction with the MLP and agree with the assessment, treatment plan and disposition.
--- NOTE | 2018-05-08 09:00 | Delivery Summary ---
Del Sum A-C Datetime Report Generated by CPN: 05/08/2018 08:59 DELIVERY PERSONNEL DELIVERY PERSONNEL: [id number] Delivery Doctor:: Layla Ruby MD Anesthesiologist:: Delores Mobley MD AUTOMATIC MOLD SANDER:: Areli Tang CRNA Labor and Delivery Nurse:: Magda Harley RN Wire Stitcher Machine:: Magda Harley RN Mail Inserter:: Dr. Buck Osullivan Cushion Gum Applicator/DESIGN COORDINATOR: ST Jose Cushion Gum Applicator/DESIGN COORDINATOR: Bobbi Azevedo, [employer] SUPERVISOR MATERNAL INFORMATION Delivery Anesthesia: General Medications After Delivery: Pitocin Drip 20 Units/1000ml NSS; Cytotec 1000mcg Per Rectum/Vagina Meds After Delivery Comment: See Anesthesia flowsheet LABOR SUMMARY EDC: 05/29/2018 00:00 No. Babies in Womb: 0 Attempted: No Labor Anesthesia: Epidural LABOR INFORMATION Reason for Induction: Pre-Eclampsia Oxytocin: N/A Group B Beta Strep: unknown Antibiotics # of Doses: 1 Antibiotics Time of Last Dose: 152 Name of Antibiotic Given: Vancomycin Steroids Given: None Reason Steroids Not Administered: Not Applicable MEMBRANES Membranes Rupture Method: Artificial Rupture of Membranes: 05/07/2018 17:22 Length of Rupture (hr): 0.00 Amniotic Fluid Color: Clear Amniotic Fluid Amount: Moderate Amniotic Fluid Odor: Normal STAGES OF LABOR Stage 3 hr: 0 Stage 3 min: 0 VAGINAL DELIVERY Episiotomy: None Laceration #1: None Laceration Extension #1: N/A Laceration Repair: Not Applicable Sponge Count Correct: N/A Sharps Count Correct: N/A CSECTION DELIVERY Primary Indication: Nonreassuring Status CSection Urgency: Emergency CSection Incidence: Primary Labor: Labor Elective: Nonelective CSection Incision: Lower Uterine Transverse BABY A INFORMATION Infant Delivery Date/Time: 05/07/2018 17:22 Method of Delivery: Born in Route : No : N/A Forceps: N/A Vacuum Extraction: N/A Shoulder Dystocia : No PRESENTATION/POSITION BABY A Presentation: Cephalic Cephalic Presentation: Vertex PLACENTA INFORMATION BABY A Placenta Delivery Time : 05/07/2018 17:22 Placenta Method of Delivery: Manual Removal Placenta Status: Delivered SCORES BABY A Heart Rate 1 min: >100 bpm Resp Effort 1 min: Good Cry Reflex Irritability 1 min: Cough or Sneeze or Pulls Away Muscle Tone 1 min: Some Flexion of Extremities Color 1 min: Blue/Pale Resuscitation Effort 1 min: Tactile Stimulation; PPV/NCPAP SCORE 1 MIN: 7 Heart Rate 5 min: >100 bpm Resp Effort 5 min: Good Cry Reflex Irritability 5 min: Cough or Sneeze or Pulls Away Muscle Tone 5 min: Active Motion Color 5 min: Blue/Pale Resuscitation Effort 5 min: Oxygen SCORE 5 MIN: 8 INFANT INFORMATION BABY A Gestational Age at Delivery: 36.6 Gestational Status: Late - 34- 36.6 Weeks Infant Outcome : Liveborn Infant Condition : Stable Sex: Female IDENTIFICATION BABY A Infant Verification Date/Time: 05/08/2018 00:11 ID Band Number: [id number] Mother's Name Verified: Yes RN Verifying : Kinsey Don RN Additional Verifying Personnel: Jony Padilla RN WEIGHT/LENGTH BABY A Birthweight (gm): 2490 Infant Weight (lb): 5 Weight (oz): 8 Length (in): 18.75 Infant Length (cm): 47.63 CORD INFORMATION BABY A No. Cord Vessels: 3 Nuchal Cord : N/A Cord Blood Taken: Yes-For Eval (Mom's Blood Type - or O+) ASSESSMENT BABY A Skin to Skin: No Transferred To: Nursery BABY B INFORMATION : N/A SIGNATURES : I personally evaluated and examined the patient in conjunction with the MLP and agree with the assessment, treatment plan and disposition.
[2018-05-08] MEDS ORDERED: DOCUSATE SODIUM 100 MG CAPSULE ONE (10:04)
[2018-05-08] MEDS ORDERED: PRENATAL VITAMIN W DHA CAPSULE PO ONE (10:04)
[2018-05-08] MEDS: PRENATAL VITAMIN W DHA CAPSULE PO SCH (10:12)
[2018-05-08] MEDS: DOCUSATE SODIUM 100 MG CAPSULE PO SCH ×2 (10:12→17:34)
--- NOTE | 2018-05-08 10:18 | Warning Signs in Babies ---
VOD Warning Signs Datetime Report Generated by [facility]: 05/08/2018 10:18 VOD#[id number] -Warning Signs in Babies: Viewed with Parent(s)/Family (04/24/2018 23:45:Savage Keene RN)
[2018-05-08] MEDS: IBUPROFEN 800 MG TABLET PO SCH ×4 (12:02→17:34)
[2018-05-09] MEDS: IBUPROFEN 800 MG TABLET PO SCH ×3 (00:31→13:16)
[2018-05-09] MEDS: DOCUSATE SODIUM 100 MG CAPSULE PO SCH (09:13)
[2018-05-09] MEDS: PRENATAL VITAMIN W DHA CAPSULE PO SCH (09:13)
--- NOTE | 2018-05-09 10:41 | PDOC DISCHARGE SUMMARY ---
Final Diagnosis Discharge Date: 05/09/18 - Final Diagnosis (1) Hypertension affecting Is this a current diagnosis for this admission?: Yes (2) Non-reassuring electronic monitoring tracing Is this a current diagnosis for this admission?: Yes (3) Placenta abruption, delivered, current hospitalization Is this a current diagnosis for this admission?: Yes (4) Pre-eclampsia Is this a current diagnosis for this admission?: Yes (6) Thrombocytopenia affecting Is this a current diagnosis for this admission?: Yes Discharge Data - Discharge Medication Prescriptions: Ibuprofen [Motrin 800 mg Tablet] 800 mg PO Q8HP PRN #60 tablet PRN Reason: Oxycodone HCl/Acetaminophen [Percocet 5-325 mg Tablet] 1 tab PO Q4HP PRN #30 tablet PRN Reason: Home Medications: Pnv 102/Iron/Folate 1/Dss/Dha [Vitafol Fe+ Docusate Combo Pck] 1 cap PO DAILY Ibuprofen [Motrin 800 mg Tablet] 800 mg PO Q8HP PRN #60 tablet 05/09/18 Oxycodone HCl/Acetaminophen [Percocet 5-325 mg Tablet] 1 tab PO Q4HP PRN #30 tablet 05/09/18 Procedures: NST Intrapartum Procedure(s): : Low Cervical, Transverse - Diagnosis Test Laboratory: Temp Pulse Resp BP Pulse Ox 98.2 F 86 20 127/59 H 100 05/09/18 10:09 05/09/18 10:09 05/09/18 10:09 05/09/18 10:09 05/09/18 10:09 05/04/18 05/04/18 05/05/18 14:48 15:39 06:14 RBC 4.03 4.07 Hgb 11.7 L 12.1 Hct 34.1 L 34.1 L Urine Opiates Screen NEGATIVE 05/05/18 05/06/18 05/07/18 16:50 09:30 14:09 RBC 4.14 4.27 4.73 Hgb 12.0 12.3 13.5 Hct 34.8 L 36.2 40.0 Urine Opiates Screen 05/08/18 05:58 RBC 4.00 Hgb 11.3 L D Hct 33.9 L Urine Opiates Screen - Discharge information/Instructions Discharge Activity: Balance Activity w/Rest, No Lifting Over 10 Pounds, No Lifting/Push/Pulling, Pelvic Rest, No tub bath Discharge Diet: Regular Disposition: HOME, SELF-CARE Follow up with: [facility] in: 3, Days - BP, incision check, consider PLT recheck
[2018-05-09 12:08] VITALS: BP 132/87
== END 2018-05-09 13:05 | disposition home or self-care (01) | DRG 787 ==
LOC: LC 14:38 → LR 17:05 → 2N 20:19 → OBSVTOIN 05-05 22:58 → LR 05-07 14:40 → 2S 05-08 11:19
PROVIDERS: ADMIT Obstetrics & Gynecology Gynecology; ATTEND Obstetrics & Gynecology Gynecology
PROC: 4A1HXCZ Monitoring of Products of Conception, Cardiac Rate, External Approach (ICD-10-PCS; 2018-05-05)
PROC: 10D00Z1 Extraction of Products of Conception, Low, Open Approach (ICD-10-PCS; principal; 2018-05-07)
PROC: 10907ZC Drainage of Amniotic Fluid, Therapeutic from Products of Conception, Via Natural or Artificial Opening (ICD-10-PCS; 2018-05-07)
DX: O14.04 Mild to moderate pre-eclampsia, complicating childbirth (principal); O99.12 Other diseases of the blood and blood-forming organs and certain disorders involving the immune mechanism complicating childbirth; O99.354 Diseases of the nervous system complicating childbirth; O76 Abnormality in fetal heart rate and rhythm complicating labor and delivery; O45.93 Premature separation of placenta, unspecified, third trimester; D69.6 Thrombocytopenia, unspecified; O60.14X0 Preterm labor third trimester with preterm delivery third trimester, not applicable or unspecified; R51 Headache; Z88.0 Allergy status to penicillin; Z91.018 Allergy to other foods; Z3A.36 36 weeks gestation of pregnancy; Z37.0 Single live birth
CPT/HCPCS: 1961; 36415; 59025; 74018; 80053; 80307; 81001; 82570; 83615; 84156; 84550; 85025; 85027; 86592; 86850; 86900; 86901; 88307; 94760; 94799; J0131; J0330; J0690; J1170; J2175; J2270; J2550; J2590; J2704; J3010; J3105; J3370; J3475; J3490; J7060

== ENCOUNTER → 2019-08-08 | Day surgery (SDC) | payer BC ==
--- NOTE | 2019-08-08 10:52 | RADIOLOGY REPORT (SQ) ---
EXAM DESCRIPTION: MRI RT UPPER JOINT WITH COMPLETED DATE/TIME: 08/08/2019 10:10 am REASON FOR STUDY: RIGHT SHOULDER PAIN (M25.511) M25.511 PAIN IN RIGHT SHOULDER COMPARISON: None. TECHNIQUE: Right shoulder images acquired and stored on PACS. Oblique coronal, oblique sagittal, and axial imaging to include fat sensitive sequences as T1, water sensitive sequences as FST2/STIR, and contrast sensitive sequences as FST1. LIMITATIONS: None. FINDINGS: JOINT DISTENTION: Adequate distention for interpretation. BONE MARROW AND CORTEX: Normal. No significant osteophytes. No edema or defects. AC JOINT: Type 1 acromion.. No significant AC joint arthropathy. GLENOHUMERAL JOINT: No subluxation or dislocation. No focal chondral defects or reactive bone changes . ROTATOR CUFF: Intact without significant tendinopathy, partial or full-thickness tears. No peritendin itis. LABRUM AND BICEPS LABRAL COMPLEX: Normal signal in the rotator interval without tear of the superior glenohumeral ligament. Superior labrum, intra-articular long head biceps intact. Distal biceps in no rmal anatomic location in bicipital groove. No paralabral cysts. INFERIOR LABRAL COMPLEX: Bony glenoid and labrum intact. IGHL intact without thickening or tear. No p aralabral cysts. ADJACENT SOFT TISSUES: No masses or nodes. OTHER: No other significant finding. IMPRESSION: NORMAL MRI ARTHROGRAM OF THE SHOULDER. TECHNICAL DOCUMENTATION: JOB ID: [id number] 2010 [employer]- All Rights Reserved Reading location - IP/workstation name: [email or web address]
--- NOTE | 2019-08-08 12:21 | RADIOLOGY REPORT (SQ) ---
EXAM DESCRIPTION: FLUORO/NEEDLE PLACEMENT; ARTHRO SHOULDER INJECTION COMPLETED DATE/TIME: 08/08/2019 9:31 am REASON FOR STUDY: RIGHT SHOULDER PAIN (M25.511) M25.511 PAIN IN RIGHT SHOULDER COMPARISON: None. FLUOROSCOPY TIME: 0.2 minutes of fluoroscopy was used. 1 images saved to PACS. LIMITATIONS: None. PROCEDURE: Procedure, risks, benefits and alternatives explained to patient who then gave written co nsent. The right shoulder was marked and a time out was called for correct procedure verification. P osterior entry site marked using fluoroscopic guidance. Shoulder prepped and draped using sterile te chnique. Local anesthesia achieved using 5 mL 1% lidocaine injection. Hypodermic needle introduced into the joint space under direct fluoroscopic visualization. 1 mL Omnipaque 300 instilled to confir m intra-articular position. Dilute gadolinium solution then injected. Needle removed and entry site covered with sterile bandage. No immediate complications noted. TECHNIQUE: Digital images acquired during fluoroscopy and stored on PACS. Patient immediately take n to the MR suite for additional imaging. INJECTION LOCATION: Posterior right shoulder. CONTRAST TYPE AND AMOUNT: 12 mL Dotarem/Saline mixture. IMPRESSION: SUCCESSFUL NEEDLE PLACEMENT AND INJECTION FOR RIGHT SHOULDER MR ARTHROGRAM USING POSTERI OR APPROACH. COMMENT: Quality ID 145: Final reports for procedures using fluoroscopy that document radiation exp osure indices, or exposure time and number of fluorographic images (if radiation exposure indices are not available) TECHNICAL DOCUMENTATION: JOB ID: [id number] 2010 [employer]- All Rights Reserved Reading location - IP/workstation name: [email or web address] [id number]
--- NOTE | 2019-08-08 12:21 | RADIOLOGY REPORT (SQ) ---
EXAM DESCRIPTION: FLUORO/NEEDLE PLACEMENT; ARTHRO SHOULDER INJECTION COMPLETED DATE/TIME: 08/08/2019 9:31 am REASON FOR STUDY: RIGHT SHOULDER PAIN (M25.511) M25.511 PAIN IN RIGHT SHOULDER COMPARISON: None. FLUOROSCOPY TIME: 0.2 minutes of fluoroscopy was used. 1 images saved to PACS. LIMITATIONS: None. PROCEDURE: Procedure, risks, benefits and alternatives explained to patient who then gave written co nsent. The right shoulder was marked and a time out was called for correct procedure verification. P osterior entry site marked using fluoroscopic guidance. Shoulder prepped and draped using sterile te chnique. Local anesthesia achieved using 5 mL 1% lidocaine injection. Hypodermic needle introduced into the joint space under direct fluoroscopic visualization. 1 mL Omnipaque 300 instilled to confir m intra-articular position. Dilute gadolinium solution then injected. Needle removed and entry site covered with sterile bandage. No immediate complications noted. TECHNIQUE: Digital images acquired during fluoroscopy and stored on PACS. Patient immediately take n to the MR suite for additional imaging. INJECTION LOCATION: Posterior right shoulder. CONTRAST TYPE AND AMOUNT: 12 mL Dotarem/Saline mixture. IMPRESSION: SUCCESSFUL NEEDLE PLACEMENT AND INJECTION FOR RIGHT SHOULDER MR ARTHROGRAM USING POSTERI OR APPROACH. COMMENT: Quality ID 145: Final reports for procedures using fluoroscopy that document radiation exp osure indices, or exposure time and number of fluorographic images (if radiation exposure indices are not available) TECHNICAL DOCUMENTATION: JOB ID: [id number] 2010 [employer]- All Rights Reserved Reading location - IP/workstation name: [email or web address] [id number]
== END ==
LOC: RAD 08:41 → EDSTATUS 09:00
PROVIDERS: ATTEND Physician Assistant
DX: M25.511 Pain in right shoulder (principal)
CPT/HCPCS: 73222; 77002; 23350; A9576